=== PATIENT | female | born 1995 | race Caucasian/White ===

== ENCOUNTER 2018-03-09 13:38 | Emergency (ER) | payer MEDICAID, SELFPAY ==
[2018-03-09 13:54] VITALS: BP 125/68; PULSE 91; RESP 16; TEMP 36.4; O2SAT 100
--- NOTE | 2018-03-09 14:12 | ED.GENADUL ---
Disposition Clinical Impression: Hand, foot and mouth disease Disposition: HOME Condition: Fair Instructions: Viral Syndrome (ED) Additional Instructions: Wash hands frequently to help prevent transmission. Encourage hydration. Tylenol and/or ibuprofen as needed for discomfort. He may try hydrocortisone cream over rash to help with symptomatic management. This is self-limiting. Please follow-up with primary care if symptoms are not improving in 1 week. If you develop fever/chills or the new/worsening symptoms please seek care urgently once again. Referrals: Sheryl Adame [Primary Care Provider] - Forms: Work Release Medical Decision Making - Medical Decision Making Patient presents today with chief complaint of rash to right hand. Also on exam a lesion oropharynx was noted. Patient reports recent exposure to vhho-sbcr-dor-mouth. Patient exam is most consistent with this diagnosis. No evidence of bacterial infection to suggest cellulitis. No open wounds on the hand. Patient is nontoxic-appearing. Vital signs are within normal limits. Patient I discussed the expected course of lixe-zyec-zkc-mouth. She does have local primary care and she will contact them for reevaluation in 1 week. Advised that this is contagious. 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 We discussed the importance of good hand hygiene. We discussed possible . She reports she is due for menses next week. I did offer testing here which she has declined. Advised that she take OCP as previously advised as she is not actively trying to become . We discussed expected course. Discussed new/wrosening symptoms and when to seek care urgently once again. History of Present Illness - General Chief complaint: RashLesion Stated complaint: UNKNOWN Time Seen by Provider: 03/09/18 14:12 Source: patient, RN notes reviewed Mode of arrival: ambulatory Limitations: no limitations - History of Present Illness Initial comments: Patient is a 22-year-old female presents today with chief complaint of rash to right hand. Patient reports the rash has been present for the past 3 days and she has noted it beginning to spread. Rash is primarily around the ring finger and extending into the web spaces of the small and middle digit as well. She denies any fevers or chills. Reports that the area has been itchy. Is concerned that she was exposed to ywcn-wgue-pqm-mouth she works in a daycare. States that she has had a sore throat. No difficulty swallowing. No upper respiratory symptoms. Denies any rash in her feet. None of the left hand. Patient reports that she is not . Does not use control. States she does use barrier method for contraception. Is not trying to become . Patient is declining test today. - Related Data Albuterol Sulfate [Proair Hfa] 2 puff IH Q4H PRN #1 inhaler 10/19/15 Inhaler, Assist Devices [Aerochamber Plus Flow-Vu] 1 each MC Q4H PRN #1 each 10/19/15 Triamcinolone [Kenalog 0.025% Oint] 1 aaron TP BID #60 gm 08/01/16 Allergies Allergy/AdvReac Type Severity Reaction Status Date / Time No Known Allergies Allergy Unverified 03/09/18 13:57 Review of Systems Constitutional: no symptoms reported. denies: chills, fever ENT: as per HPI Respiratory: no symptoms reported. denies: cough, shortness of breath Gastrointestinal: denies: abdominal pain, nausea, vomiting Musculoskeletal: denies: back pain Skin: as per HPI Past Medical History - Past Medical History Medical history: asthma Psychiatric history: depression - Social History Alcohol use: none Drug use: none General Exam - General Limitations: no limitations General appearance: alert, in no apparent distress - Head Head exam: Present: atraumatic - Eye Eye exam: Present: normal apperance - ENT ENT exam: Present: mucous membranes moist. Absent: normal exam (On exam, patient has a lesion in the superior aspect of the oropharynx. Uvula is midline. No tonsillar swelling. No exudate.) - Neck Neck exam: Present: normal inspection. Absent: tenderness, lymphadenopathy - Respiratory Respiratory exam: Present: normal lung sounds bilaterally. Absent: respiratory distress - Cardiovascular Cardiovascular Exam: Present: regular rate, normal rhythm, normal heart sounds - Extremities Exam Extremities exam: Present: full ROM, normal capillary refill. Absent: normal inspection (Exam of the patient's right upper extremity is significant for an erythematous raised rash along the palmar aspect of the ring finger extending into the web spaces. No burrowing. No pain to palpation. No discharge. No area of fluctuance to suggest an abscess. This most consistent with kwsn-dzmf-tzx-mouth.), tenderness - Neurological Exam Neurological exam: Present: alert, normal gait - Psychiatric Psychiatric exam: Present: normal affect, normal mood - Skin Skin exam: Present: rash (As above) Course Vital Signs - 24 hr 03/09/18 13:54 Temperature 36.4 C L Pulse 91 H Respiratory 16 Rate Blood Pressure 125/68 Pulse Oximetry 100
--- NOTE | 2018-03-09 14:15 | ED.GENADUL_ITS ---
Disposition Clinical Impression: Hand, foot and mouth disease Disposition: HOME Condition: Fair Instructions: Viral Syndrome (ED) Additional Instructions: Wash hands frequently to help prevent transmission. Encourage hydration. Tylenol and/or ibuprofen as needed for discomfort. He may try hydrocortisone cream over rash to help with symptomatic management. This is self-limiting. Please follow-up with primary care if symptoms are not improving in 1 week. If you develop fever/chills or the new/worsening symptoms please seek care urgently once again. Referrals: Sheryl Adame [Primary Care Provider] - Forms: Work Release Medical Decision Making - Medical Decision Making Patient presents today with chief complaint of rash to right hand. Also on exam a lesion oropharynx was noted. Patient reports recent exposure to hand- tvsv-dqe-jqrxj. Patient exam is most consistent with this diagnosis. No evidence of bacterial infection to suggest cellulitis. No open wounds on the hand. Patient is nontoxic-appearing. Vital signs are within normal limits. Patient I discussed the expected course of yflg-lslv-wvw-mouth. She does have local primary care and she will contact them for reevaluation in 1 week. Advised that this is contagious. 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 We discussed the importance of good hand hygiene. We discussed possible . She reports she is due for menses next week. I did offer testing here which she has declined. Advised that she take OCP as previously advised as she is not actively trying to become . We discussed expected course. Discussed new/wrosening symptoms and when to seek care urgently once again. History of Present Illness - General Chief complaint: RashLesion Stated complaint: UNKNOWN Time Seen by Provider: 03/09/18 14:12 Source: patient, RN notes reviewed Mode of arrival: ambulatory Limitations: no limitations - History of Present Illness Initial comments: Patient is a 22-year-old female presents today with chief complaint of rash to right hand. Patient reports the rash has been present for the past 3 days and she has noted it beginning to spread. Rash is primarily around the ring finger and extending into the web spaces of the small and middle digit as well. She denies any fevers or chills. Reports that the area has been itchy. Is concerned that she was exposed to mxck-dupb-rhh-mouth she works in a daycare. States that she has had a sore throat. No difficulty swallowing. No upper respiratory symptoms. Denies any rash in her feet. None of the left hand. Patient reports that she is not . Does not use control. States she does use barrier method for contraception. Is not trying to become . Patient is declining test today. - Related Data Albuterol Sulfate [Proair Hfa] 2 puff IH Q4H PRN #1 inhaler 10/19/15 Inhaler, Assist Devices [Aerochamber Plus Flow-Vu] 1 each MC Q4H PRN #1 each Triamcinolone [Kenalog 0.025% Oint] 1 aaron TP BID #60 gm 08/01/16 Allergies Allergy/AdvReac Type Severity Reaction Status Date / Time No Known Allergies Allergy Unverified 03/09/18 13:57 Review of Systems Constitutional: no symptoms reported. denies: chills, fever ENT: as per HPI Respiratory: no symptoms reported. denies: cough, shortness of breath Gastrointestinal: denies: abdominal pain, nausea, vomiting Musculoskeletal: denies: back pain Skin: as per HPI Past Medical History - Past Medical History Medical history: asthma Psychiatric history: depression - Social History Alcohol use: none Drug use: none General Exam - General Limitations: no limitations General appearance: alert, in no apparent distress - Head Head exam: Present: atraumatic - Eye Eye exam: Present: normal apperance - ENT ENT exam: Present: mucous membranes moist. Absent: normal exam (On exam, patient has a lesion in the superior aspect of the oropharynx. Uvula is midline. No tonsillar swelling. No exudate.) - Neck Neck exam: Present: normal inspection. Absent: tenderness, lymphadenopathy - Respiratory Respiratory exam: Present: normal lung sounds bilaterally. Absent: respiratory distress - Cardiovascular Cardiovascular Exam: Present: regular rate, normal rhythm, normal heart sounds - Extremities Exam Extremities exam: Present: full ROM, normal capillary refill. Absent: normal inspection (Exam of the patient's right upper extremity is significant for an erythematous raised rash along the palmar aspect of the ring finger extending into the web spaces. No burrowing. No pain to palpation. No discharge. No area of fluctuance to suggest an abscess. This most consistent with hand-foot- and-mouth.), tenderness - Neurological Exam Neurological exam: Present: alert, normal gait - Psychiatric Psychiatric exam: Present: normal affect, normal mood - Skin Skin exam: Present: rash (As above) Course Vital Signs - 24 hr 03/09/18 13:54 Temperature 36.4 C L Pulse 91 H Respiratory 16 Rate Blood Pressure 125/68 Pulse Oximetry 100
== END 2018-03-09 14:35 | disposition home or self-care (01) ==
PROVIDERS: Emergency Provider Student in an Organized Health Care Education/Training Program; PCP Nurse Practitioner Family
DX: B08.4 Enteroviral vesicular stomatitis with exanthem (principal)
CPT/HCPCS: 99282

== ENCOUNTER 2019-01-08 18:51 | Emergency (ER) | payer SELFPAY ==
[2019-01-08 19:00] VITALS: PULSE 94; RESP 98; TEMP 36.4; O2SAT 98
[2019-01-08 19:46] LABS: Bilirubin Negative (Negative); Blood Negative (Negative); Clarity Clear; Glucose Negative (Negative); Ketones Negative (Negative); Leukocyte Esterase Trace (Negative); Nitrite Negative (Negative); Specific Gravity >= 1.030 (1.005-1.025); Urobilinogen 0.2 EU/dL (Up TO 0.2); pH 5.5 (5-8)
[2019-01-08 20:21] LABS: Bacteria Moderate HPF (Negative); C & S Indicated? Yes; Casts Negative LPF (Negative); Crystals Negative HPF (Negative); Epithelial Cells Few HPF (Negative); Mucus Negative (Negative); Other Cells Negative (Negative); RBC Negative (0-2)
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
[2019-01-08] MEDS: Sulfameth/Trimeth DS TAB 1 TAB PO (20:47)
== END 2019-01-08 20:49 | disposition home or self-care (01) ==
PROVIDERS: Emergency Provider Student in an Organized Health Care Education/Training Program; PCP Nurse Practitioner Family
DX: N39.0 Urinary tract infection, site not specified (principal)
CPT/HCPCS: 81025; 81003; 81015; 87086

== ENCOUNTER 2019-02-01 20:04 | Emergency (ER) | payer MEDICAID, SELFPAY ==
[2019-02-01 20:12] VITALS: BP 133/70; PULSE 94; RESP 16; TEMP 36.7; O2SAT 97
--- NOTE | 2019-02-01 21:06 | DI.CT_ITS ---
SYMPTOM/DIAGNOSIS: DIFFUSE ABD PAIN, VOMITING ABDOMEN AND PELVIC CT: CT scan of the abdomen and pelvis was performed following the uneventful administration of intravenous contrast material. Comparison is made with 11/24/14. Mild dependent atelectatic changes are seen in the lung bases. The liver is normal in size. No suspicious hepatic mass is seen. The portal, superior mesenteric and splenic veins are patent. The gallbladder is negative. There is no biliary ductal dilatation. The pancreas is unremarkable as are the spleen and adrenal glands. The kidneys show normal and symmetric enhancement. No evidence of a solid renal mass or obstruction. The urinary bladder is intact. The reproductive organs are unremarkable. The bowel shows no evidence of obstruction or inflammation. There is a normal appendix present. The abdominal aorta is of normal caliber. No significant abdominal or pelvic adenopathy, ascites or pneumoperitoneum is present. There is mild sclerosis seen of the sacroiliac joints which may represent a sacroiliitis. No ankylosis is present. No acute osseous abnormality is identified. IMPRESSION: No evidence of an acute abdomen.
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
[2019-02-01] MEDS: Normal Saline 1,000 ML 1000 ML IV (21:26)
[2019-02-01 21:29] LABS: Abs Immature Grans 0.04 k/cumm (0.0-0.09); Absolute Monocyte Count 0.65 k/cumm (0.11-0.7); Basophils % 0.3; Eosinophils % 1.7; HCT 40.5 % (36.0-46.0); HGB 13.8 g/dL (12.0-15.5); Immature Grans % 0.3; Lymphocytes % 32.9; Mean Corp. HGB Concentration 34.1 g/dL (32.0-36.0); Mean Corpuscular Hemoglobin 28.5 pg (27.0-33.0); Mean Corpuscular Volume 83.5 fL (80-95); Monocytes % 5.5; Neutrophils % 59.3; Platelet Count 345 x1000/uL (130-400); RBC 4.85 m/cumm (4.00-5.20); RBC Distribution Width 13.3 % (11.7-14.6); White Blood Cell Count 11.87 k/cumm (4.4-10.8)
[2019-02-01 21:30] LABS: Absolute Basophil Count 0.04 k/cumm (0.0-0.2); Absolute Lymphocyte Count 3.91 k/cumm (1.2-3.4); Absolute Neutrophil Count 7.04 k/cumm (1.2-6.7)
[2019-02-01] MEDS: Prochlorperazine 10 MG/2 ML VIAL IVP (21:40)
[2019-02-01] MEDS: Normal Saline 50 ML 35 ML (21:40)
[2019-02-01] MEDS: Ketorolac 30 MG/ML VIAL IVP (21:40)
[2019-02-01 21:43] LABS: ALT 40 U/L (12-78); AST 10 U/L (15-37); Albumin 3.8 g/dL (3.4-5.0); Alkaline Phosphatase 67 U/L (46-116); BUN 9 mg/dL (7-18); Bilirubin, Total 0.3 mg/dL (0.2-1.0); CREATININE 0.65 mg/dL (0.55-1.02); Calcium 9.2 mg/dL (8.5-10.1); Chloride 105 mmol/L (98-107); Glucose 110 mg/dL (70-100); Lipase 159 U/L (73-393); Potassium 3.7 mmol/L (3.5-5.1); Sodium 143 mmol/L (136-145); Total Protein 7.3 g/dL (6.4-8.2)
[2019-02-01] MEDS: Omnipaque 350 MG/ML 100 ML BTL IJ (22:36)
--- NOTE | 2019-02-01 23:31 | DI.VRAD_ITS ---
EXAM: CT Abdomen and Pelvis With Contrast EXAM DATE/TIME: 02/01/2019 9:08 PM CLINICAL HISTORY: 23 years old, female; Abdominal pain; Generalized; Patient HX: Diffuse abd pain, vomiting; Additional info: R/O appendicitis/cholecystitis/sbo/diverticulitis TECHNIQUE: Imaging protocol: Axial computed tomography images of the abdomen and pelvis with intravenous contrast. Coronal and sagittal reformatted images were created and reviewed. COMPARISON: CT ABD PELVIS WITH CONTRAST 11/24/2014 5:31 PM FINDINGS: Lungs: Dependent atelectasis in the lung bases. No pleural effusion. Normal heart size without pericardial effusion. Liver: Normal. No mass. Gallbladder and bile ducts: Normal. No calcified stones. No ductal dilation. Pancreas: Normal. No ductal dilation. Spleen: Normal. No splenomegaly. Adrenals: Normal. No mass. Kidneys and ureters: Normal. No hydronephrosis. Stomach and bowel: No evidence of bowel obstruction, enteritis, or colitis. Appendix: Normal appendix without evidence of acute appendicitis. Intraperitoneal space: No free fluid, pneumoperitoneum, or drainable fluid collection. Vasculature: Normal. No abdominal aortic aneurysm. Lymph nodes: Normal. No enlarged lymph nodes. Bladder: Unremarkable as visualized. Reproductive: The uterus and ovaries are within normal limits noting bilateral follicles. Bones/joints: Mild bilateral sacroiliitis. No acute fracture. Soft tissues: Unremarkable. IMPRESSION: No acute findings in the abdomen or pelvis. Dictated and Authenticated by: Ana Cristina Ceja MD. Ordering:ZAIRE Elias MD
[2019-02-02 00:36] LABS: Bilirubin Negative (Negative); Blood Negative (Negative); Clarity Clear (Clear); Glucose Negative (Negative); Ketones Negative (Negative); Leukocyte Esterase Negative (Negative); Nitrite Negative (Negative); Specific Gravity 1.015 (1.005-1.025); Urobilinogen 0.2 EU/dL (Up TO 0.2)
[2019-02-02] MEDS: Ondansetron O.D.T. 4 MG TABEF 8 MG PO (00:44)
[2019-02-02 00:47] LABS: Bacteria Negative HPF (Negative); C & S Indicated? No; Casts Negative LPF (Negative); Crystals Negative HPF (Negative); Epithelial Cells Few HPF (Negative); Mucus Negative (Negative); RBC 0-2 (0-2); WBC 0-2 HPF (0-5)
[2019-02-02 00:56] VITALS: BP 130/66; PULSE 78; RESP 16; O2SAT 99
== END 2019-02-02 00:55 | disposition home or self-care (01) ==
PROVIDERS: Physician Assistant; Emergency Provider Emergency Medicine; PCP Nurse Practitioner Family
DX: R10.9 Unspecified abdominal pain (principal); R11.2 Nausea with vomiting, unspecified; R19.7 Diarrhea, unspecified
CPT/HCPCS: 36415; 80053; 81025; 83690; 96361; 96374; 96376; 99285; 74177; 81003; 81015; 85025; 99284; J0780; J1885; J3490

== ENCOUNTER 2019-06-18 13:46 | Emergency (ER) | payer MEDICAID, SELFPAY ==
[2019-06-18 13:51] VITALS: BP 119/71; PULSE 96; RESP 16; TEMP 36.6; O2SAT 98
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
[2019-06-18 14:19] LABS: Bilirubin Negative (Negative); Blood Large (Negative); Clarity Cloudy (Clear); Glucose Negative (Negative); Ketones Negative (Negative); Leukocyte Esterase Small (Negative); Nitrite Negative (Negative); Specific Gravity >= 1.030 (1.005-1.025); Urobilinogen 0.2 EU/dL (Up TO 0.2)
[2019-06-18 14:29] LABS: C & S Indicated? Yes; RBC >50 HPF (0-2); WBC >50 HPF (0-5)
[2019-06-18 14:42] VITALS: BP 117/72; PULSE 89; RESP 14; TEMP 36.4; O2SAT 97
== END 2019-06-18 14:42 | disposition home or self-care (01) ==
PROVIDERS: Emergency Provider Emergency Medicine; PCP Nurse Practitioner Family
DX: N30.91 Cystitis, unspecified with hematuria (principal); Z87.440 Personal history of urinary (tract) infections
CPT/HCPCS: 81025; 99283; 81003; 81015; 87086

== ENCOUNTER 2020-07-24 18:50 | Emergency (ER) | payer MEDICAID, SELFPAY ==
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
[2020-07-24 19:00] VITALS: BP 139/81; PULSE 106; RESP 18; TEMP 36.7; O2SAT 98
--- NOTE | 2020-07-24 19:15 | DI.CT_ITS ---
EXAM: CT CHEST PE CTA CLINICAL HISTORY: pain, hemoptysis. TECHNIQUE: Imaging Protocol: Axial CT angiography was performed with multi-slice acquisition and mu lti-planar and/or 3D reconstructions. CONTRAST MATERIAL: Intravenous: Omnipaque 350 Contrast volume:100 mL COMPARISON: CT CT ABDOMEN PELVIS W from 02/01/2019 FINDINGS: Pulmonary Arteries: No evidence of filling defect to suggest pulmonary emboli. Tracheobronchial tree: Patent where visualized. Mediastinum and Melania: No dominant adenopathy or fluid collection. Pulmonary parenchyma: No consolidation or dominant measurable mass. 0.4 cm nodule associated with th e right major fissure likely reflects a lymph node. No follow-up recommended. No architectural dist ortion. There is poor inspiration with dependent atelectasis. Pleura: No effusion or pneumothorax. Heart: The heart is not dilated. No coronary artery calcifications are seen. No pericardial effusion. Aorta: Thoracic aorta non-dilated. No dissection. Upper abdomen: Unremarkable. Bones: Normal. Soft tissues: Unremarkable. IMPRESSION: No evidence of pulmonary embolism, thoracic aortic dissection or aneurysm. RADIATION DOSE DELIVERED: 628.06mGy.cm Total DLP DATA REPOSITORY: All CT scans at this facility are submitted to the National Radiology Data Registry (NRDR) Dose Index Registry (DIR) with the [employer] (A[employer]). RADIATION OPTIMIZATION: All CT scans at this facility use at least one of these dose optimization te chniques: automated exposure control; mA and/or kV adjustment per patient size (includes targeted exa ms where dose is matched to clinical indication); or iterative reconstruction.
--- NOTE | 2020-07-24 19:15 | RT.EKG_ITS ---
APPROVED REPORT Exam: Resting ECG Patient Location: E HR:92 bpm ECG Measurements Heart Rate 92 AXIS VA 145 P 31 QRSd 89 QRS 43 QT 353 T 11 QTc 437 Conclusion Sinus rhythm...normal P axis, V-rate 60- 99 I have reviewed and interpreted ECG and agree with software generated interpretation. no acute ischemic changes. non-diagnostic EKG
[2020-07-24] MEDS: Normal Saline 1,000 ML 1000 ML IV (19:44)
[2020-07-24 19:52] LABS: Abs Immature Grans 0.08 10^3/uL (0.0-0.06); Absolute Basophil Count 0.04 10^3/uL (0.0-0.2); Absolute Eosinophil Count 0.32 10^3/uL (0.0-0.7); Absolute Monocyte Count 0.68 10^3/uL (0.1-0.8); Absolute Neutrophil Count 7.59 10^3/uL (1.2-6.7); Basophils % 0.3; Eosinophils % 2.5; HCT 44.5 % (36.0-46.0); HGB 14.5 g/dL (11.2-15.7); Immature Grans % 0.6; Lymphocytes % 32.5; MCH 27.7 pg (27.0-33.0); MCHC 32.6 % (32.0-36.0); MCV 84.9 fL (80-95); MPV 7.7 fL (8.0-11.0); Monocytes % 5.3; Neutrophils % 58.8; Nucleated RBC 0 %; Platelet Count 353 10^3/uL (130-400); RBC 5.24 10^6/uL (3.93-5.22); RDW 13.2 % (11.7-14.6); RDW-SD 40.4 fL; WBC 12.91 10^3/uL (4.4-10.8)
[2020-07-24 20:04] LABS: Lipase 134 U/L (73-393)
[2020-07-24 20:17] LABS: PTT Activated 22.9 sec (21.0-27.5); Prothrombin Time 10.2 sec (9.3-11.0)
[2020-07-24 20:20] LABS: ALT 57 U/L (14-59); AST 20 U/L (15-37); Albumin 3.9 g/dL (3.4-5.0); Alkaline Phosphatase 77 U/L (46-116); Anion Gap 6.4 mmol/L (3-11); BUN 12 mg/dL (7-18); Bilirubin, Total 0.3 mg/dL (0.2-1.0); CO2 29.6 mmol/L (21.0-32.0); CREATININE 0.76 mg/dL (0.55-1.02); Chloride 103 mmol/L (98-107); Glucose 94 mg/dL (74-106); Magnesium 2.2 mg/dL (1.8-2.4); Potassium 3.9 mmol/L (3.5-5.1); Sodium 139 mmol/L (136-145); Total Protein 7.8 g/dL (6.4-8.2)
[2020-07-24 20:21] VITALS: PULSE 94; RESP 16; O2SAT 99
[2020-07-24] MEDS: Omnipaque 350 MG/ML 100 ML BTL IJ (20:23)
[2020-07-24] MEDS: Normal Saline - Diluent 50 ML VIAL IV (20:24)
--- NOTE | 2020-07-24 20:40 | DI.VRAD_ITS ---
PROCEDURE INFORMATION: Exam: CT Angiography Chest With Contrast Exam date and time: 07/24/2020 8:12 PM Age: 24 years old Clinical indication: Chest pain; Type not specified; Patient HX: Pain, hemoptysis TECHNIQUE: Imaging protocol: Computed tomographic angiography of the chest with intravenous contrast. 3D rendering (Not supervised by radiologist): MIP and/or 3D reconstructed images were created by the technologist. COMPARISON: CR ABD FLAT UPRIGHT PA CHEST 04/11/2015 9:23 AM FINDINGS: Pulmonary arteries: Normal. No pulmonary emboli. Aorta: Unremarkable. No aortic aneurysm. No aortic dissection. Lungs: Dependent ground-glass opacities likely represent subsegmental atelectasis. 4 mm right major fissural nodule on image 227 of series 7. Pleural space: Unremarkable. No pneumothorax. No pleural effusion. Heart: Unremarkable. No cardiomegaly. No pericardial effusion. Lymph nodes: Unremarkable. No enlarged lymph nodes. Bones/joints: Unremarkable. No acute fracture. Soft tissues: Unremarkable. IMPRESSION: 1. No pulmonary embolism. 2. Dependent subsegmental atelectasis. 3. 4 mm fissural nodule in the right. No imaging follow-up recommended. Dictated and Authenticated by: Abdirahman Smith MD. Ordering:JULIA Lau MD
[2020-07-24 20:48] LABS: Troponin I < 0.05 ng/mL (<0.06)
[2020-07-24 21:01] LABS: Mono Screening Negative (Negative)
[2020-07-24 21:18] VITALS: BP 120/73; PULSE 92; RESP 16; TEMP 36.9; O2SAT 99
== END 2020-07-24 21:55 | disposition home or self-care (01) ==
PROVIDERS: Emergency Provider Physician Assistant; PCP Nurse Practitioner Family
DX: R10.13 Epigastric pain (principal); J02.9 Acute pharyngitis, unspecified; R07.81 Pleurodynia
CPT/HCPCS: 36415; 71275; 80053; 81025; 83690; 87880; 93005; 96360; 99285; 83735; 84484; 85025; 85610; 85730; 86308; 93010; J3490